=== PATIENT | female | born 1970 | race Two or more races ===

== ENCOUNTER 2024-11-28 17:18 | Emergency (ER) | payer MEDICAID, OTHER ==
[~2024-11-28] VITALS: Ht 160 cm; Wt 82.0 kg
[2024-11-28 17:40] VITALS: BP 147/97; PULSE 90; RESP 18; O2SAT 97
--- NOTE | 2024-11-28 20:06 | ED.PDOC ---
Musculoskeletal HPI Comments 53 YEAR OLD FEMALE PRESENTS TO ER WITH COMPLAINTS OF LEFT WRIST PAIN X 1 DAY. PATIENT STATES THAT SHE WOKE UP WITH LEFT WRIST PAIN WITH LIMITED ROM TO LEFT WRIST THIS MORNING. SHE RATES HER CURRENT PAIN A 6/10 TO LEFT WRIST WITH RADIATION TOWARDS LEFT HAND. REPORTS THAT SHE IS PRESCRIBED MORPHINE AND OXYCODONE FOR CHRONIC BACK PAIN THAT SHE HAS BEEN TAKING WITH SLIGHT RELIEF AND NOTES SHE DOES HAVE HISTORY OF LEFT WRIST SPRAIN IN 2023. 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 Family History Family History: Unknown Social History Smoker: Non-Smoker Alcohol: Denies ETOH Use Drugs: Marijuana Lives In: Home Constitutional: denies: chills, diaphoresis, fatigue, fever, malaise, sweats, weakness, others EENTM: denies: blurred vision, double vision, ear bleeding, ear discharge, ear drainage, ear pain, ear ringing, eye pain, eye redness, hearing loss, mouth pain, mouth swelling, nasal discharge, nose bleeding, nose congestion, nose pain, photophobia, tearing, throat pain, throat swelling, voice changes, others Respiratory: denies: cough, hemoptysis, orthopnea, SOB at rest, shortness of breath, SOB with excertion, stridor, wheezing, others Cardiovascular: denies: chest pain, dizzy spells, diaphoresis, Dyspnea on exertion, edema, irregular heart beat, left arm pain, lightheadedness, palpitations, PND, syncope, others Gastrointestinal: denies: abdomen distended, abdominal pain, blood streaked bowels, constipated, diarrhea, dysphagia, difficulty swallowing, hematemesis, melena, nausea, poor appetite, poor fluid intake, rectal bleeding, rectal pain, vomiting, others Genitourinary: denies: abnormal vagina bleeding, burning, dyspareunia, dysuria, flank pain, frequency, hematuria, incontinence, pain, , vagina discharge, urgency, others Neurological: denies: dizziness, fainting, headache, left sided numbness, left sided weakness, numbness, paresthesia, pre-existing deficit, right sided numbness, right sided weakness, seizure, speech problems, tingling, tremors, weakness, others Musculoskeletal: reports: others ( STATED IN HPI) Integumetry: denies: bruises, change in color, change in hair/nails, dryness, laceration, lesions, lumps, rash, wounds, others Allergic/Immunocompromised: denies: Difficulty Healing, Frequent Infections, Hives, Itching, others Hematologic/Lymphatic: denies: anemia, blood clots, easy bleeding, easy bruising, swollen glands, others Endocrine: denies: excessive hunger, excessive sweating, excessive thirst, excessive urination, flushing, intolerance to cold, intolerance to heat, unexplained weight gain, unexplained weight loss, others Psychiatric: denies: anxiety, bipolar disorder, depression, hopeless, panic disorder, schizophrenia, sleepless, suicidal, others Physical Exam General Appearance: No Apparent Distress, Obese HEENT: PERRL/EOMI Neck: Full Range of Motion, Non-Tender, Normal Respiratory: Chest Non-Tender, Lungs Clear, No Accessory Muscle Use, No Respiratory Distress, Normal Breath Sounds Cardiovascular: No Murmur, No Gallop, Regular Rate/Rhythm Breast Exam: Deferred Gastrointestinal: NOT DONE Genitalia: Deferred Pelvic: Deferred Rectal: Deferred Extremities: Normal capillary refill, Normal range of motion Musculoskeletal : Extremity Location: Wrist (SLIGHT TTP CENTRALIZED TO LEFT WRIST NOTED. NO TTP TO LEFT ANATOMICAL SNUFFBOX NOTED. NO TTP TO LEFT HAND NOTED. NO SKIN CHANGES APPRECIATED. PULSES INTACT. MOTHER SUPERIOR STRENGTH INTACT AND EQUAL BILATERALLY) Neurologic: Alert, No Motor Deficits, Normal Affect, Normal Mood, No Sensory Deficits Cerebellar Function: Normal Reflexes: Normal Skin: Dry, Normal Color, Warm Peripheral Pulses: 2+ Radial (R), 2+ Radial (L), 2+ Brachial (R), 2+ Brachial (L) Lymphatic: No Adenopathy Was a procedure done? Was a procedure done?: No Sedation Sedation?: No Differential Diagnosis EXT Differential Diagnosis: Fracture, Dislocation, Neurovascular injury X-Ray, Labs, Meds, VS Vital Signs Date Time Temp Pulse Resp B/P (MAP) Pulse Ox O2 Delivery O2 Flow Rate FiO2 11/28/24 17:40 98.8 90 18 147/39 (244) 01 PATIENT: LUZ ELENA BARTONCT: [id number]: [id number] : 1970 LOC: ER ROOM / BED: / AGE / SEX: 53 / F ADM STATUS: REG ER SERVICE 03 ORDERING PHYSICIAN: ROSA MARIA HOLCOMB PROCEDURE(s): LWRI - L WRIST 3+ VIEW XRAY REASON: LEFT WRIST PAIN ORDER NUMBER(s): [id number], ACCESSION NUMBER(s): [id number] CLINICAL INDICATION: LEFT WRIST PAIN TECHNIQUE: 3 radiographic views of the wrist were obtained. Comparison: XY L WRIST 3+ VIEW XRAY on DOS: 08/08/24 FINDINGS/IMPRESSION: There is no evidence of acute fracture or dislocation. The visualized joint space is well maintained. The alignment is anatomical. There is no radiopaque foreign body. ATED BY: BERTRAM HUNT Jr., DO DICTATED DATE/TIME: 11/28/242021 SIGNED BY: BERTRAM HUNT Jr., SIGNED DATE/TIME: 11/28/242021 CC: LEFT WRIST SPLINT APPLIED PATIENT NEUROVASCULARLY INTACT LEFT WRIST X-RAY REVIEWED ADVISED ON REST/ NO STRENUOUS ACTIVITY, ELEVATION AND ALTERNATE ICE ON/OFF NEEDED FOR PAIN ADVISED TO FOLLOW UP WITH PCP IN 1-2 DAYS PATIENT VERBALIZED UNDERSTANDING AND AGREEABLE WITH CURRENT PLAN OF CARE ADVISED TO RETURN TO ER IMMEDIATELY IF SYMPTOMS WORSEN Images Reviewed?: Images reviewed and evaluated by me Time of 1ST Reevaluation: 19:44 Reevaluation 1ST: N/A Patient Education/Counseling: Diagnosis, Treatment, Prognosis, Need For Follow Up Family Education/Counseling: No Family Present Departure 1 Departure Time of Disposition: 20:02 Impression: Primary Impression: Left wrist sprain Qualified Codes: S63.502A - Unspecified sprain of left wrist, initial encounter Disposition: HOME / SELF CARE / HOMELESS Condition: Stable Discharged With: Friend Critical Care Note Critical Care Time?: No Stability Stability form required: No Heart Score Heart Score: Heart Score Response (Comments) Value History N/A 0 EKG N/A 0 Age N/A 0 Risk Factors N/A 0 Troponin N/A 0 Total 0 ROSA MARIA HOLCOMB Nov 28, 2024 20:06
--- NOTE | 2024-11-28 20:25 | DVH ---
CLINICAL INDICATION: LEFT WRIST PAIN TECHNIQUE: 3 radiographic views of the wrist were obtained. Comparison: XY L WRIST 3+ VIEW XRAY on DOS: 08/08/24 FINDINGS/IMPRESSION: There is no evidence of acute fracture or dislocation. The visualized joint space is well maintained. The alignment is anatomical. There is no radiopaque foreign body.
== END 2024-11-28 20:36 | disposition home or self-care (01) ==
LOC: ER 17:18
DX: S63.502A Unspecified sprain of left wrist, initial encounter (principal); F41.9 Anxiety disorder, unspecified; F32.A Depression, unspecified; I10 Essential (primary) hypertension; X58.XXXA Exposure to other specified factors, initial encounter; Y93.89 Activity, other specified; Y92.89 Other specified places as the place of occurrence of the external cause; Y99.8 Other external cause status
CPT/HCPCS: 29125; 73110